=== PATIENT | female | born 1960 | race Caucasian/White ===

== ENCOUNTER 2018-11-30 09:07 | Emergency (ER) | payer OTHER ==
[~2018-11-30] VITALS: Ht 157.5 cm; Wt 67.3 kg
[~2018-11-30 09:07] MED LIST: METFORMIN
[2018-11-30 10:47] LABS: BASOPHILS % 0.5 % (0.0-2.0); EOSINOPHILS % 0.8 % (0.0-5.0); HEMATOCRIT. 43.3 % (36.0-48.0); HEMOGLOBIN. 14.4 g/dL (12.0-16.0); LYMPHOCYTES % 33.4 % (20.0-50.0); MEAN CORPUSCULAR HEMOGLOBIN 28.8 pg (28.0-32.0); MEAN CORPUSCULAR VOLUME 86.4 fL (81.0-99.0); MEAN PLATELET VOLUME 7.7 fl (7.4-10.4); MONOCYTES % 5.9 % (2.0-8.0); NEUTROPHILS % 59.4 % (40.0-76.0); PLATELET 268 x1000/uL (130-400); RED BLOOD CELL COUNT 5.01 mill/uL (4.2-5.4)
[2018-11-30 10:51] LABS: CHLORIDE 104 mEq/L (98-107)
[2018-11-30 10:53] LABS: CLARITY URINE CLOUDY (CLEAR); COLOR URINE YELLOW (YELLOW); KETONES URINE TRACE (NEGATIVE); LEUKOCYTE ESTERASE URINE NEGATIVE (NEGATIVE); NITRITE URINE NEGATIVE (NEGATIVE); OCCULT BLOOD URINE NEGATIVE (NEGATIVE); PROTEIN URINE NEGATIVE (NEGATIVE); SPECIFIC GRAVITY URINE 1.029 (1.005-1.030)
[2018-11-30 10:56] LABS: PARTIAL THROMBOPLASTIN TIME 26.8 sec (23.4-31.0); PROTHROMBIN TIME 9.9 sec (9.6-11.0)
[2018-11-30 13:07] VITALS: BP 136/74
[2018-11-30] MEDS ORDERED: ASPIRIN 325MG EC TABLET PO ONE (13:45)
== END 2018-11-30 13:55 | disposition short-term general hospital (02) ==
LOC: ER 09:07 → CANBEDREQ 16:25
DX: R07.89 Other chest pain (principal); I10 Essential (primary) hypertension; E11.9 Type 2 diabetes mellitus without complications; R42 Dizziness and giddiness; E78.00 Pure hypercholesterolemia, unspecified; N39.0 Urinary tract infection, site not specified; Z90.49 Acquired absence of other specified parts of digestive tract; Z90.710 Acquired absence of both cervix and uterus
CPT/HCPCS: 36415; 71045; 83880; 84484; 93005; 99285

== ENCOUNTER 2019-03-05 09:39 | Emergency (ER) | payer MEDICAID, OTHER ==
[~2019-03-05] VITALS: Ht 152.4 cm; Wt 63.0 kg
[2019-03-05 10:49] LABS: CLARITY URINE CLOUDY (CLEAR); COLOR URINE DARK YELLOW (YELLOW); KETONES URINE TRACE (NEGATIVE); LEUKOCYTE ESTERASE URINE NEGATIVE (NEGATIVE); NITRITE URINE NEGATIVE (NEGATIVE); OCCULT BLOOD URINE NEGATIVE (NEGATIVE); PH URINE 5.5 (4.5-8.0); PROTEIN URINE TRACE (NEGATIVE)
[2019-03-05 10:57] LABS: BASOPHILS % 0.3 % (0.0-2.0); EOSINOPHILS % 1.5 % (0.0-5.0); HEMATOCRIT. 43.1 % (36.0-48.0); HEMOGLOBIN. 14.8 g/dL (12.0-16.0); MEAN CORPUSCULAR HEMOGLOBIN 29.6 pg (28.0-32.0); MEAN CORPUSCULAR VOLUME 86.2 fL (81.0-99.0); MEAN PLATELET VOLUME 8.1 fl (7.4-10.4); MONOCYTES % 6.5 % (2.0-8.0); NEUTROPHILS % 62.7 % (40.0-76.0); PLATELET 253 x1000/uL (130-400); RED CELL DISTRIBUTION WIDTH 13.5 % (11.6-14.6)
[2019-03-05 10:59] LABS: CHLORIDE 101 mEq/L (98-107)
[2019-03-05 12:15] VITALS: BP 106/71
== END 2019-03-05 12:36 | disposition home or self-care (01) ==
LOC: ER 09:39
DX: K57.92 Diverticulitis of intestine, part unspecified, without perforation or abscess without bleeding (principal); I11.9 Hypertensive heart disease without heart failure; I51.9 Heart disease, unspecified; E11.9 Type 2 diabetes mellitus without complications
CPT/HCPCS: 36415; 74176; 80048; 81003; 99284

== ENCOUNTER 2020-09-18 16:05 | Emergency (ER) | payer MEDICAID, OTHER ==
[~2020-09-18] VITALS: Ht 152.4 cm; Wt 69.7 kg
[2020-09-18] MEDS ORDERED: SODIUM CHLORIDE 0.9% 1,000 ML IV ONE (17:15)
[2020-09-18 17:24] LABS: BASOPHILS % 0.4 % (0.0-2.0); HEMATOCRIT. 38.6 % (36.0-48.0); HEMOGLOBIN. 12.9 g/dL (12.0-16.0); LYMPHOCYTES % 39.5 % (20.0-50.0); MEAN CORPUSCULAR HEMOGLOBIN 29.2 pg (28.0-32.0); MEAN CORPUSCULAR VOLUME 87.3 fL (81.0-99.0); MONOCYTES % 4.7 % (2.0-8.0); NEUTROPHILS % 54.4 % (40.0-76.0); PLATELET 233 x1000/uL (130-400); RED BLOOD CELL COUNT 4.43 mill/uL (4.2-5.4); RED CELL DISTRIBUTION WIDTH 13.3 % (11.6-14.6)
[2020-09-18 17:31] LABS: CHLORIDE 105 mEq/L (98-107)
[2020-09-18 17:35] LABS: ETHANOL BLOOD < 10 mg/dL
[2020-09-19 01:04] VITALS: BP 117/74
[2020-09-19] MEDS ORDERED: ACETAMINOPHEN 325MG TABLET PO ONE (01:15)
== END 2020-09-19 01:20 | disposition short-term general hospital (02) ==
LOC: ER 16:05
DX: H53.2 Diplopia (principal); Z86.73 Personal history of transient ischemic attack (TIA), and cerebral infarction without residual deficits; G51.0 Bell's palsy; E11.9 Type 2 diabetes mellitus without complications; I10 Essential (primary) hypertension; E78.00 Pure hypercholesterolemia, unspecified
CPT/HCPCS: 36415; 70450; 71045; 80053; 80320; 82962; 84484; 85025; 93005; 99285; J7030; Z7610; G0480

== ENCOUNTER 2020-10-04 08:58 | Emergency (ER) | payer OTHER ==
[~2020-10-04] VITALS: Ht 152.4 cm; Wt 70.0 kg
[2020-10-04] MEDS ORDERED: ACETAMINOPHEN 325MG TABLET PO STA (09:11)
[2020-10-04] MEDS ORDERED: SODIUM CHLORIDE 0.9% 1,000 ML IV ONE (09:15)
[2020-10-04 09:57] LABS: BASOPHILS % 0.4 % (0.0-2.0); EOSINOPHILS % 0.7 % (0.0-5.0); HEMATOCRIT. 41.1 % (36.0-48.0); HEMOGLOBIN. 13.6 g/dL (12.0-16.0); LYMPHOCYTES % 27.7 % (20.0-50.0); MEAN CORPUSCULAR HEMOGLOBIN 28.9 pg (28.0-32.0); MEAN CORPUSCULAR VOLUME 87.3 fL (81.0-99.0); MONOCYTES % 4.7 % (2.0-8.0); NEUTROPHILS % 66.5 % (40.0-76.0); RED BLOOD CELL COUNT 4.72 mill/uL (4.2-5.4)
[2020-10-04 09:58] LABS: CHLORIDE 104 mEq/L (98-107)
[2020-10-04] MEDS ORDERED: IBUP-2029 MT (11:27)
[2020-10-04] MEDS ORDERED: KETOROLAC 15MG/ML VIAL IV ONE (11:30)
[2020-10-04 11:42] LABS: PLATELET 235 x1000/uL (130-400)
[2020-10-04 11:52] VITALS: BP 116/77
== END 2020-10-04 12:06 | disposition home or self-care (01) ==
LOC: ER 08:58
DX: B34.9 Viral infection, unspecified (principal); E78.00 Pure hypercholesterolemia, unspecified; E11.9 Type 2 diabetes mellitus without complications; I11.9 Hypertensive heart disease without heart failure; Z86.73 Personal history of transient ischemic attack (TIA), and cerebral infarction without residual deficits; Z90.49 Acquired absence of other specified parts of digestive tract; Z90.710 Acquired absence of both cervix and uterus; Z79.84 Long term (current) use of oral hypoglycemic drugs
CPT/HCPCS: 36415; 70450; 71045; 80053; 85025; 87040; 93005; 96361; 96374; 99285; J1885; J7030

== ENCOUNTER 2021-02-06 11:24 | Inpatient (IN) | payer OTHER ==
[~2021-02-06] VITALS: Ht 154.9 cm; Wt 66.7 kg
[~2021-02-06 11:24] MED LIST changes: +IBUP-2029 MT
[2021-02-06] MEDS ORDERED: MORPHINE SULFATE 4 MG/ML CPJ (NOT FOR IM USE) IV STA (12:06)
[2021-02-06 12:28] LABS: BASOPHILS % 0.3 % (0.0-2.0); EOSINOPHILS % 0.7 % (0.0-5.0); HEMATOCRIT. 40.7 % (36.0-48.0); HEMOGLOBIN. 13.7 g/dL (12.0-16.0); LYMPHOCYTES % 19.4 % (20.0-50.0); MEAN CORPUSCULAR HEMOGLOBIN 28.8 pg (28.0-32.0); MEAN CORPUSCULAR VOLUME 85.5 fL (81.0-99.0); MEAN PLATELET VOLUME 7.7 fl (7.4-10.4); MONOCYTES % 4.9 % (2.0-8.0); NEUTROPHILS % 74.7 % (40.0-76.0); PLATELET 239 x1000/uL (130-400); RED BLOOD CELL COUNT 4.76 mill/uL (4.2-5.4); RED CELL DISTRIBUTION WIDTH 12.8 % (11.6-14.6)
[2021-02-06 12:36] LABS: CHLORIDE 104 mEq/L (98-107)
[2021-02-06] MEDS ORDERED: MORPHINE SULFATE 4 MG/ML CPJ (NOT FOR IM USE) IV ONE (14:15)
[2021-02-06 21:00] VITALS: BP 110/78
[2021-02-06 21:24] VITALS: BP 110/78
[2021-02-06] MEDS ORDERED: GLIP10TA10 PO (21:48)
[2021-02-06] MEDS ORDERED: VALS40TA11 MT (21:51)
[2021-02-06] MEDS ORDERED: INSU100I28 SQ (21:52)
[2021-02-06] MEDS ORDERED: ASPI-986 MT (21:52)
[2021-02-07] VITALS: BP 117/71
[2021-02-07 04:00] VITALS: BP 102/66
[2021-02-07] MEDS ORDERED: CLONIDINE 0.1MG TABLET PO PRN (05:15)
[2021-02-07] MEDS ORDERED: ACETAMINOPHEN 325MG TABLET PO PRN (05:15)
[2021-02-07] MEDS ORDERED: ONDANSETRON HCL 4MG/2ML INJ IV PRN (05:15)
[2021-02-07] MEDS ORDERED: DEXTROSE 50% WATER 50ML SYRINGE IV PRN (05:15)
[2021-02-07] MEDS: BLOOD SUGAR DIAGNOSTIC STRIP TEST SCH ×4 (05:46→21:56)
[2021-02-07] MEDS: INSULIN LISPRO 100 UNITS/ML SUBCUT SCH ×4 (05:48→21:56)
[2021-02-07 08:00] VITALS: BP 106/66
[2021-02-07 08:26] LABS: CHLORIDE 105 mEq/L (98-107)
[2021-02-07 08:36] LABS: LDL CHOLESTEROL 106 mg/dL (5-100)
[2021-02-07 08:37] LABS: HDL CHOLESTEROL 52 mg/dL (40-59)
[2021-02-07 08:40] LABS: BASOPHILS % 0.3 % (0.0-2.0); EOSINOPHILS % 0.5 % (0.0-5.0); HEMATOCRIT. 38.6 % (36.0-48.0); HEMOGLOBIN. 12.9 g/dL (12.0-16.0); LYMPHOCYTES % 29.1 % (20.0-50.0); MEAN CORPUSCULAR HEMOGLOBIN 28.7 pg (28.0-32.0); MEAN CORPUSCULAR VOLUME 85.6 fL (81.0-99.0); MEAN PLATELET VOLUME 8.2 fl (7.4-10.4); MONOCYTES % 6.2 % (2.0-8.0); NEUTROPHILS % 63.9 % (40.0-76.0); PLATELET 236 x1000/uL (130-400); RED BLOOD CELL COUNT 4.51 mill/uL (4.2-5.4); RED CELL DISTRIBUTION WIDTH 13.1 % (11.6-14.6)
[2021-02-07] MEDS: ASPIRIN 81MG TABLET PO SCH (09:33)
[2021-02-07 12:00] VITALS: BP 93/53
[2021-02-07 12:24] LABS: *AMPHETAMINES SCREEN URINE NEGATIVE (NEGATIVE); *BARBITURATES SCREEN URINE NEGATIVE (NEGATIVE); *BENZODIAZEPINES SCREEN URINE NEGATIVE (NEGATIVE); *COCAINE SCREEN URINE NEGATIVE (NEGATIVE); METHADONE URINE SCREEN NEGATIVE (NEGATIVE); OPIATES URINE SCREEN PRESUMTIVE POSITIVE (NEGATIVE)
[2021-02-07 12:25] LABS: CANNABINOID URINE SCREEN NEGATIVE (NEGATIVE); PHENCYCLIDINE URINE SCREEN NEGATIVE (NEGATIVE)
[2021-02-07 16:00] VITALS: BP 101/68
[2021-02-07 18:16] LABS: HDL CHOLESTEROL 47 mg/dL (40-59); LDL CHOLESTEROL 96 mg/dL (5-100)
[2021-02-07 20:00] VITALS: BP 98/55
[2021-02-08] VITALS: BP 97/54
[2021-02-08 04:00] VITALS: BP 92/55
[2021-02-08] MEDS: BLOOD SUGAR DIAGNOSTIC STRIP TEST SCH ×2 (06:12→12:08)
[2021-02-08] MEDS: INSULIN LISPRO 100 UNITS/ML SUBCUT SCH ×2 (06:13→13:07)
[2021-02-08 08:00] VITALS: BP 108/49
[2021-02-08 08:04] LABS: BASOPHILS % 0.4 % (0.0-2.0); HEMATOCRIT. 39.1 % (36.0-48.0); HEMOGLOBIN. 13.1 g/dL (12.0-16.0); LYMPHOCYTES % 37.1 % (20.0-50.0); MEAN CORPUSCULAR HEMOGLOBIN 29.1 pg (28.0-32.0); MEAN CORPUSCULAR VOLUME 86.7 fL (81.0-99.0); MEAN PLATELET VOLUME 8.6 fl (7.4-10.4); MONOCYTES % 7.8 % (2.0-8.0); NEUTROPHILS % 53.7 % (40.0-76.0); PLATELET 242 x1000/uL (130-400); RED BLOOD CELL COUNT 4.51 mill/uL (4.2-5.4); RED CELL DISTRIBUTION WIDTH 13.2 % (11.6-14.6)
[2021-02-08] MEDS: ASPIRIN 81MG TABLET PO SCH (08:40)
[2021-02-08 08:56] LABS: CHLORIDE 105 mEq/L (98-107)
[2021-02-08 12:00] VITALS: BP 118/72
[2021-02-08 13:46] VITALS: BP 118/72
== END 2021-02-08 15:04 | disposition home or self-care (01) | DRG 203 ==
LOC: ER 11:24 → ENRESERV 20:12 → 7EST 21:10
PROVIDERS: ADMIT Internal Medicine; ATTEND Internal Medicine
DX: M94.0 Chondrocostal junction syndrome [Tietze] (principal); E11.9 Type 2 diabetes mellitus without complications; E78.00 Pure hypercholesterolemia, unspecified; E78.5 Hyperlipidemia, unspecified; I10 Essential (primary) hypertension; Z20.822 Contact with and (suspected) exposure to COVID-19; Z86.73 Personal history of transient ischemic attack (TIA), and cerebral infarction without residual deficits; Z87.891 Personal history of nicotine dependence; Z90.710 Acquired absence of both cervix and uterus; Z79.899 Other long term (current) drug therapy; Z90.49 Acquired absence of other specified parts of digestive tract; Z79.82 Long term (current) use of aspirin
CPT/HCPCS: 36415; 71045; 80048; 80053; 80061; 80305; 82962; 83735; 83880; 84443; 84484; 85025; 87426; 93005; 93306; 99285; J1815; J2270

== ENCOUNTER 2022-05-31 10:06 | Emergency (ER) | payer MEDICAID, OTHER ==
[~2022-05-31] VITALS: Ht 162.6 cm; Wt 82.0 kg
[~2022-05-31 10:06] MED LIST changes: +ASPI-986 MT; +GLIP10TA10 PO; +INSU100I28 SQ; +VALS40TA11 MT
[2022-05-31] MEDS ORDERED: KETOROLAC 30MG/ML VIAL IM STA (12:15)
[2022-05-31] MEDS ORDERED: DEXAMETHASONE 10 MG/ML VIAL IM ONE (12:15)
[2022-05-31] MEDS ORDERED: PENICILLIN G BENZATHINE 1,200,000 UNITS/2ML SYR IM ONE (12:15)
[2022-05-31] MEDS ORDERED: PENICILLIN G BENZATHINE 1,200,000 UNITS/2ML SYR IM NR (13:59)
[2022-05-31 14:10] LABS: CLARITY URINE CLOUDY (CLEAR); COLOR URINE YELLOW (YELLOW); KETONES URINE NEGATIVE (NEGATIVE); LEUKOCYTE ESTERASE URINE NEGATIVE (NEGATIVE); NITRITE URINE NEGATIVE (NEGATIVE); OCCULT BLOOD URINE NEGATIVE (NEGATIVE); PH URINE 5.5 (4.5-8.0); PROTEIN URINE NEGATIVE (NEGATIVE); SPECIFIC GRAVITY URINE 1.021 (1.005-1.030); UROBILINOGEN URINE 0.2 E.U./dL (0.2-1.0)
[2022-05-31] MEDS ORDERED: NAPR-681 PO (15:57)
[2022-05-31 16:34] VITALS: BP 145/65
== END 2022-05-31 16:36 | disposition home or self-care (01) ==
LOC: ER 10:06
DX: J02.9 Acute pharyngitis, unspecified (principal); M54.9 Dorsalgia, unspecified; Z20.822 Contact with and (suspected) exposure to COVID-19; I11.9 Hypertensive heart disease without heart failure; E11.9 Type 2 diabetes mellitus without complications
CPT/HCPCS: 81003; 82962; 87070; 87426; 87430; 93005; 96372; 99284; C9803; J0561; J1100; J1885

== ENCOUNTER 2022-06-13 07:53 | Inpatient (IN) | payer MEDICAID, OTHER ==
[~2022-06-13] VITALS: Ht 152.4 cm; Wt 72.8 kg
[~2022-06-13 07:53] MED LIST changes: +NAPR-681 PO
[2022-06-13] MEDS ORDERED: ASPIRIN 81MG TABLET PO ONE (09:00)
[2022-06-13] MEDS ORDERED: NITROGLYCERIN 0.4MG TABLET SL SL PRN (09:00)
[2022-06-13 09:52] LABS: BASOPHILS % 0.6 % (0.0-2.0); EOSINOPHILS % 0.5 % (0.0-5.0); HEMOGLOBIN. 13.6 g/dL (12.0-16.0); LYMPHOCYTES % 23.9 % (20.0-50.0); MEAN CORPUSCULAR VOLUME 86.2 fL (81.0-99.0); MEAN PLATELET VOLUME 7.6 fl (7.4-10.4); MONOCYTES % 7.3 % (2.0-8.0); NEUTROPHILS % 67.7 % (40.0-76.0); PLATELET 193 x1000/uL (130-400); RED BLOOD CELL COUNT 4.52 mill/uL (4.2-5.4); RED CELL DISTRIBUTION WIDTH 13.5 % (11.6-14.6)
[2022-06-13 10:03] LABS: D-DIMER 0.34 mg/L FEU (<0.50); PARTIAL THROMBOPLASTIN TIME 28.2 sec (23.4-31.0); PROTHROMBIN TIME 10.8 sec (9.6-11.0)
[2022-06-13 10:10] LABS: CHLORIDE 104 mEq/L (98-107)
[2022-06-13] MEDS ORDERED: ASPIRIN 81MG TABLET PO NR (11:15)
[2022-06-13] MEDS ORDERED: CLONIDINE 0.1MG TABLET PO PRN (13:30)
[2022-06-13] MEDS ORDERED: MORPHINE SULFATE 2 MG/ML CPJ (NOT FOR IM USE) IV PRN (13:30)
[2022-06-13] MEDS ORDERED: IPRATROPIUM/ALBUTEROL 0.5-3(2.5)MG/3ML NEB HHN PRN (13:30)
[2022-06-13] MEDS ORDERED: ONDANSETRON HCL 4MG/2ML INJ IV PRN (13:30)
[2022-06-13] MEDS ORDERED: NALOXONE HCL 0.4MG/ML VIAL IV PRN (13:45)
[2022-06-13 17:18] VITALS: BP 106/64
[2022-06-13 17:33] VITALS: BP 106/64
[2022-06-13] MEDS ORDERED: METF-873 PO (17:52)
[2022-06-13] MEDS ORDERED: INSU100I28 SQ (17:52)
[2022-06-13 20:00] VITALS: BP 117/73
[2022-06-13] MEDS: ACETAMINOPHEN 325MG TABLET PO PRN (22:23)
[2022-06-13] MEDS: DIPHENHYDRAMINE 50MG/ML VIAL IV PRN (22:24)
[2022-06-14] VITALS: BP 110/70
[2022-06-14 04:00] VITALS: BP 98/52
[2022-06-14] MEDS ORDERED: DEXTROSE 50% WATER 50ML SYRINGE IV PRN (07:00)
[2022-06-14] MEDS ORDERED: INSULIN LISPRO 100 UNITS/ML SUBCUT SCH (07:10)
[2022-06-14] MEDS: BLOOD SUGAR DIAGNOSTIC STRIP TEST SCH ×4 (07:49→20:39)
[2022-06-14 08:00] VITALS: BP 127/75
[2022-06-14 08:13] LABS: BASOPHILS % 0.4 % (0.0-2.0); EOSINOPHILS % 2.2 % (0.0-5.0); HEMATOCRIT. 37.8 % (36.0-48.0); HEMOGLOBIN. 12.9 g/dL (12.0-16.0); MEAN CORPUSCULAR HEMOGLOBIN 29.3 pg (28.0-32.0); MEAN CORPUSCULAR VOLUME 85.9 fL (81.0-99.0); MONOCYTES % 9.5 % (2.0-8.0); NEUTROPHILS % 46.9 % (40.0-76.0); PLATELET 187 x1000/uL (130-400); RED CELL DISTRIBUTION WIDTH 13.4 % (11.6-14.6)
[2022-06-14 08:37] LABS: CHLORIDE 105 mEq/L (98-107)
[2022-06-14] MEDS: INSULIN LISPRO 100 UNITS/ML SUBCUT SCH ×4 (08:55→20:39)
[2022-06-14 12:00] VITALS: BP 123/64
[2022-06-14] MEDS: GUAIFENESIN 200MG/10ML SUGAR FREE UDC PO PRN ×2 (12:31→22:19)
[2022-06-14 16:00] VITALS: BP 93/59
[2022-06-14 20:00] VITALS: BP 119/62
[2022-06-14] MEDS: ACETAMINOPHEN 325MG TABLET PO PRN (22:19)
[2022-06-14] MEDS: DIPHENHYDRAMINE 50MG/ML VIAL IV PRN (22:20)
[2022-06-15] VITALS: BP 108/62
[2022-06-15 04:00] VITALS: BP 106/64
[2022-06-15] MEDS: BLOOD SUGAR DIAGNOSTIC STRIP TEST SCH ×4 (06:40→21:48)
[2022-06-15] MEDS: INSULIN LISPRO 100 UNITS/ML SUBCUT SCH ×4 (07:43→21:00)
[2022-06-15 08:00] VITALS: BP 100/56
[2022-06-15 12:00] VITALS: BP 104/60
[2022-06-15] MEDS: GLIPIZIDE 10MG TABLET PO SCH (13:11)
[2022-06-15] MEDS: MUPIROCIN 2% OINT 22GM TOP SCH (14:41)
[2022-06-15 16:00] VITALS: BP 102/54
[2022-06-15] MEDS: METFORMIN HCL 850MG TABLET PO SCH (18:12)
[2022-06-15 20:00] VITALS: BP 111/60
[2022-06-15] MEDS: ACETAMINOPHEN 325MG TABLET PO PRN (21:51)
[2022-06-16] VITALS: BP 106/62
[2022-06-16 04:00] VITALS: BP 109/69
[2022-06-16] MEDS: METFORMIN HCL 850MG TABLET PO SCH (06:49)
[2022-06-16] MEDS: BLOOD SUGAR DIAGNOSTIC STRIP TEST SCH ×2 (06:49→11:42)
[2022-06-16] MEDS: GLIPIZIDE 10MG TABLET PO SCH (06:49)
[2022-06-16] MEDS: INSULIN LISPRO 100 UNITS/ML SUBCUT SCH ×2 (06:50→12:43)
[2022-06-16 08:00] VITALS: BP 111/69
[2022-06-16] MEDS ORDERED: MEDICATION NOT ON FORMULARY EA (Valsartan 1 TAB) MT SCH (09:00)
[2022-06-16] MEDS ORDERED: LOSARTAN POTASSIUM 25 MG TABLET PO SCH (09:00)
[2022-06-16] MEDS: MUPIROCIN 2% OINT 22GM TOP SCH (09:02)
[2022-06-16 12:00] VITALS: BP 108/69
[2022-06-16] MEDS ORDERED: BENZ100C86 MT (12:33)
[2022-06-16 12:54] VITALS: BP 108/69
== END 2022-06-16 14:25 | disposition home or self-care (01) | DRG 137 ==
LOC: ER 07:53 → 7EST 12:47 → EDBEDREQ 12:51 → EDBEDREQTM 12:51 → ENRESERV 13:41
PROVIDERS: ADMIT Internal Medicine; ATTEND Internal Medicine
DX: U07.1 COVID-19 (principal); E11.9 Type 2 diabetes mellitus without complications; E78.5 Hyperlipidemia, unspecified; E78.00 Pure hypercholesterolemia, unspecified; I10 Essential (primary) hypertension; I25.10 Atherosclerotic heart disease of native coronary artery without angina pectoris; Z79.4 Long term (current) use of insulin; Z86.73 Personal history of transient ischemic attack (TIA), and cerebral infarction without residual deficits; Z90.710 Acquired absence of both cervix and uterus
CPT/HCPCS: 36415; 71045; 80053; 82962; 83036; 83880; 84145; 84484; 85025; 85379; 87426; 93005; 93970; 99285; C9803; J1200; J1815

== ENCOUNTER 2022-11-05 15:22 | Emergency (ER) | payer OTHER ==
[~2022-11-05] VITALS: Ht 157.5 cm; Wt 68.0 kg
[~2022-11-05 15:22] MED LIST changes: -ASPI-986 MT; +BENZ100C86 MT; +METF-873 PO
[2022-11-05] MEDS ORDERED: SODIUM CHLORIDE 0.9% 1,000 ML IV ONE (15:30)
[2022-11-05 15:53] LABS: BASOPHILS % 0.3 % (0.0-2.0); EOSINOPHILS % 0.9 % (0.0-5.0); HEMATOCRIT. 40.1 % (36.0-48.0); HEMOGLOBIN. 13.6 g/dL (12.0-16.0); LYMPHOCYTES % 37.4 % (20.0-50.0); MEAN CORPUSCULAR HEMOGLOBIN 29.6 pg (28.0-32.0); MEAN CORPUSCULAR VOLUME 86.9 fL (81.0-99.0); MEAN PLATELET VOLUME 7.8 fl (7.4-10.4); MONOCYTES % 4.5 % (2.0-8.0); NEUTROPHILS % 56.9 % (40.0-76.0); PLATELET 244 x1000/uL (130-400); RED BLOOD CELL COUNT 4.61 mill/uL (4.2-5.4); RED CELL DISTRIBUTION WIDTH 13.2 % (11.6-14.6)
[2022-11-05 16:00] LABS: CHLORIDE 106 mEq/L (98-107)
[2022-11-05 17:26] LABS: CLARITY URINE CLEAR (CLEAR); COLOR URINE YELLOW (YELLOW); KETONES URINE TRACE (NEGATIVE); LEUKOCYTE ESTERASE URINE NEGATIVE (NEGATIVE); NITRITE URINE NEGATIVE (NEGATIVE); OCCULT BLOOD URINE NEGATIVE (NEGATIVE); PH URINE 5.5 (4.5-8.0); PROTEIN URINE 1+ (NEGATIVE)
[2022-11-05] MEDS ORDERED: ACETAMINOPHEN 325MG TABLET PO ONE (17:30)
[2022-11-05] MEDS ORDERED: AMOX1TAB16 MT (19:11)
[2022-11-05] MEDS ORDERED: METR-167 MT (19:11)
[2022-11-05 19:40] VITALS: BP 138/72
== END 2022-11-05 19:50 | disposition home or self-care (01) ==
LOC: ER 15:22
DX: R55 Syncope and collapse (principal); K57.90 Diverticulosis of intestine, part unspecified, without perforation or abscess without bleeding; I10 Essential (primary) hypertension; E11.9 Type 2 diabetes mellitus without complications; Z90.49 Acquired absence of other specified parts of digestive tract
CPT/HCPCS: 36415; 70450; 71045; 74176; 80053; 81003; 84484; 85025; 93005; 96360; 96361; 99285; J7030; Z7610

== ENCOUNTER 2022-11-15 10:41 | Emergency (ER) | payer OTHER ==
[~2022-11-15] VITALS: Ht 152.4 cm; Wt 70.0 kg
[~2022-11-15 10:41] MED LIST changes: +AMOX1TAB16 MT; +METR-167 MT
[2022-11-15] MEDS ORDERED: KETOROLAC 15MG/ML VIAL IV ONE (11:45)
[2022-11-15 12:22] LABS: BASOPHILS % 0.3 % (0.0-2.0); EOSINOPHILS % 0.7 % (0.0-5.0); HEMATOCRIT. 39.8 % (36.0-48.0); HEMOGLOBIN. 13.5 g/dL (12.0-16.0); LYMPHOCYTES % 27.7 % (20.0-50.0); MEAN CORPUSCULAR HEMOGLOBIN 29.4 pg (28.0-32.0); MEAN CORPUSCULAR VOLUME 86.8 fL (81.0-99.0); MONOCYTES % 7.6 % (2.0-8.0); NEUTROPHILS % 63.7 % (40.0-76.0); PLATELET 231 x1000/uL (130-400); RED BLOOD CELL COUNT 4.59 mill/uL (4.2-5.4); RED CELL DISTRIBUTION WIDTH 13.1 % (11.6-14.6)
[2022-11-15 12:27] LABS: CHLORIDE 105 mEq/L (98-107)
[2022-11-15 12:28] LABS: PROTHROMBIN TIME 10.9 sec (9.6-11.0)
[2022-11-15 12:40] LABS: BETA HYDROXYBUTYRATE 0.5 mMol/L (0.0-0.3)
[2022-11-15 15:32] LABS: CLARITY URINE CLOUDY (CLEAR); COLOR URINE YELLOW (YELLOW); KETONES URINE 2+ (NEGATIVE); LEUKOCYTE ESTERASE URINE NEGATIVE (NEGATIVE); NITRITE URINE NEGATIVE (NEGATIVE); OCCULT BLOOD URINE NEGATIVE (NEGATIVE); PH URINE 5.5 (4.5-8.0); PROTEIN URINE TRACE (NEGATIVE); SPECIFIC GRAVITY URINE 1.043 (1.005-1.030)
[2022-11-15 16:22] VITALS: BP 132/76
== END 2022-11-15 16:40 | disposition home or self-care (01) ==
LOC: ER 11:31
DX: J06.9 Acute upper respiratory infection, unspecified (principal); E11.65 Type 2 diabetes mellitus with hyperglycemia; I10 Essential (primary) hypertension; Z79.899 Other long term (current) drug therapy; Z90.49 Acquired absence of other specified parts of digestive tract
CPT/HCPCS: 36415; 71045; 72100; 80053; 81003; 82010; 83605; 83880; 84145; 84484; 85025; 85610; 87040; 93005; 96374; 99285; J1885; Z7610

== ENCOUNTER 2023-03-19 09:46 | Emergency (ER) | payer OTHER ==
[~2023-03-19] VITALS: Ht 152.4 cm; Wt 73.0 kg
[2023-03-19 09:57] VITALS: RESP 18; O2SAT 96
[2023-03-19] MEDS ORDERED: ONDANSETRON HCL 4MG/2ML INJ IV ONE (10:00)
[2023-03-19] MEDS ORDERED: MORPHINE SULFATE 4 MG/ML CPJ (NOT FOR IM USE) IV ONE (10:00)
[2023-03-19 10:52] LABS: BASOPHILS % 0.3 % (0.0-2.0); EOSINOPHILS % 0.7 % (0.0-5.0); HEMATOCRIT. 40.2 % (36.0-48.0); HEMOGLOBIN. 13.5 g/dL (12.0-16.0); LYMPHOCYTES % 31.4 % (20.0-50.0); MEAN CORPUSCULAR HEMOGLOBIN 28.9 pg (28.0-32.0); MEAN CORPUSCULAR HGB CONC 33.6 g/dL (31.0-37.0); MEAN CORPUSCULAR VOLUME 85.9 fL (81.0-99.0); MEAN PLATELET VOLUME 7.7 fl (7.4-10.4); MONOCYTES % 5.2 % (2.0-8.0); NEUTROPHILS % 62.4 % (40.0-76.0); PLATELET 246 x1000/uL (130-400); RED BLOOD CELL COUNT 4.68 mill/uL (4.2-5.4); RED CELL DISTRIBUTION WIDTH 13.1 % (11.6-14.6); WHITE BLOOD COUNT 6.7 x1000/uL (4.5-11.0)
[2023-03-19 11:03] LABS: CHLORIDE 106 mEq/L (98-107); INDEX HEMOLYSI 1 (1-3); INDEX ICTERIC 1 (1-4); INDEX LIPEMIC 1 (1-3); POTASSIUM 4.1 mEq/L (3.5-5.1); SODIUM 135 mEq/L (136-145)
[2023-03-19 11:05] LABS: INR 0.9; PROTHROMBIN TIME 10.2 sec (9.6-11.0)
[2023-03-19 11:10] LABS: ALANINE AMINOTRANSFERASE 30 IU/L (13-61); ALBUMIN 3.6 g/dL (3.4-5.0); ASPARTATE AMINOTRANSFERASE 15 IU/L (15-37); BILIRUBIN TOTAL 0.7 mg/dL (0.1-1.0); CARBON DIOXIDE 25 mEq/L (21-32); CREATININE 0.5 mg/dL (0.6-1.3); GLUCOSE 353 mg/dL (70-105); PROTEIN TOTAL 7.8 g/dL (6.0-8.3); UREA NITROGEN BLOOD 6 mg/dL (7-21)
[2023-03-19] MEDS ORDERED: TOPUD PO (12:55)
[2023-03-19 13:22] VITALS: BP 133/61; PULSE 72; TEMP 97.6
== END 2023-03-19 14:14 | disposition home or self-care (01) ==
LOC: ER 09:46
DX: R10.9 Unspecified abdominal pain (principal); E11.9 Type 2 diabetes mellitus without complications; I10 Essential (primary) hypertension; Z90.49 Acquired absence of other specified parts of digestive tract; Z90.710 Acquired absence of both cervix and uterus; Z79.899 Other long term (current) drug therapy
CPT/HCPCS: 36415; 74176; 80053; 85025; 99284

== ENCOUNTER 2023-06-14 09:59 | Emergency (ER) | payer OTHER ==
[~2023-06-14] VITALS: Ht 152.4 cm; Wt 58.0 kg
[~2023-06-14 09:59] MED LIST changes: +TOPUD PO
[2023-06-14 10:02] VITALS: BP 141/53; PULSE 83; RESP 20; TEMP 97.8; O2SAT 100
[2023-06-14] MEDS ORDERED: BACITRACIN ZINC OINT UDPKT TOP ONE (12:00)
== END 2023-06-14 12:07 | disposition home or self-care (01) ==
LOC: ER 09:59
DX: S61.210A Laceration without foreign body of right index finger without damage to nail, initial encounter (principal); E11.9 Type 2 diabetes mellitus without complications; I11.0 Hypertensive heart disease with heart failure; I50.9 Heart failure, unspecified; Z90.49 Acquired absence of other specified parts of digestive tract; Z90.710 Acquired absence of both cervix and uterus; W25.XXXA Contact with sharp glass, initial encounter; Y93.89 Activity, other specified; Y92.89 Other specified places as the place of occurrence of the external cause; Y99.8 Other external cause status
CPT/HCPCS: 99282

== ENCOUNTER 2023-10-22 08:25 | Inpatient (IN) | payer MEDICAID, OTHER ==
[~2023-10-22] VITALS: Ht 157.5 cm; Wt 68.5 kg
[2023-10-22 08:48] LABS: BASOPHILS % 0.6 % (0.0-2.0); EOSINOPHILS % 0.9 % (0.0-5.0); HEMATOCRIT. 40.4 % (36.0-48.0); HEMOGLOBIN. 13.3 g/dL (12.0-16.0); LYMPHOCYTES % 39.4 % (20.0-50.0); MEAN CORPUSCULAR HEMOGLOBIN 28.7 pg (28.0-32.0); MEAN CORPUSCULAR HGB CONC 32.9 g/dL (31.0-37.0); MEAN CORPUSCULAR VOLUME 87.1 fL (81.0-99.0); MEAN PLATELET VOLUME 7.9 fl (7.4-10.4); MONOCYTES % 5.4 % (2.0-8.0); NEUTROPHILS % 53.7 % (40.0-76.0); PLATELET 220 x1000/uL (130-400); RED BLOOD CELL COUNT 4.63 mill/uL (4.2-5.4); RED CELL DISTRIBUTION WIDTH 12.7 % (11.6-14.6)
[2023-10-22] MEDS: IOHEXOL-350 100 ML BOTTLE ONE (08:59)
[2023-10-22 09:03] LABS: INR 0.9; PROTHROMBIN TIME 10.1 sec (9.6-11.0)
[2023-10-22 09:15] LABS: ALANINE AMINOTRANSFERASE 20 IU/L (10-49); ALBUMIN 4.3 g/dL (3.2-4.8); ASPARTATE AMINOTRANSFERASE 19 IU/L (<34); BILIRUBIN TOTAL 0.4 mg/dL (0.1-1.0); CARBON DIOXIDE 24 mEq/L (21-32); CHLORIDE 107 mEq/L (98-107); CREATININE 0.7 mg/dL (0.6-1.0); GLUCOSE 307 mg/dL (70-105); PROTEIN TOTAL 7.7 g/dL (6.0-8.3); SODIUM 136 mEq/L (136-145); UREA NITROGEN BLOOD 12 mg/dL (9-23)
[2023-10-22 09:17] LABS: ETHANOL BLOOD < 10 mg/dL (<10); TROPONIN I HIGH SENSITIVITY < 4 ng/L (3.0-34)
[2023-10-22] MEDS: SODIUM CHLORIDE 0.9% 1,000 ML IV ONE (10:00)
[2023-10-22] MEDS: ONDANSETRON HCL 4MG/2ML INJ IV ONE (10:00)
[2023-10-22 12:29] LABS: TROPONIN I HIGH SENSITIVITY < 4 ng/L (3.0-34)
[2023-10-22 13:09] LABS: CLARITY URINE CLEAR (CLEAR); COLOR URINE YELLOW (YELLOW); GLUCOSE URINE 3+ (NEGATIVE); KETONES URINE NEGATIVE (NEGATIVE); LEUKOCYTE ESTERASE URINE NEGATIVE (NEGATIVE); NITRITE URINE NEGATIVE (NEGATIVE); OCCULT BLOOD URINE NEGATIVE (NEGATIVE); PROTEIN URINE NEGATIVE (NEGATIVE); SPECIFIC GRAVITY URINE 1.042 (1.005-1.030)
[2023-10-22 13:19] LABS: BACTERIA URINE 1+; RBC URINE NONE SEEN /hpf (0-2); SQUAMOUS EPITHELIAL CELL URINE 2+ /lpf (RARE/1+); WBC URINE NONE SEEN /hpf (0-2)
[2023-10-22 13:30] LABS: *AMPHETAMINES SCREEN URINE NEGATIVE (NEGATIVE); *BARBITURATES SCREEN URINE NEGATIVE (NEGATIVE); *BENZODIAZEPINES SCREEN URINE NEGATIVE (NEGATIVE); *COCAINE SCREEN URINE NEGATIVE (NEGATIVE); CANNABINOID URINE SCREEN NEGATIVE (NEGATIVE); ECSTASY MDMA SCREEN URINE NEGATIVE (NEGATIVE); METHADONE URINE SCREEN Neg (NEGATIVE); OPIATES URINE SCREEN NEGATIVE (NEGATIVE); PHENCYCLIDINE URINE SCREEN NEGATIVE (NEGATIVE)
[2023-10-22] MEDS: ONDANSETRON HCL 4MG/2ML INJ IV NR (14:15)
[2023-10-22] MEDS ORDERED: CLONIDINE 0.1MG TABLET PO PRN (14:30)
[2023-10-22] MEDS ORDERED: DIPHENHYDRAMINE 50MG/ML VIAL IV PRN (14:30)
[2023-10-22] MEDS ORDERED: IPRATROPIUM/ALBUTEROL 0.5-3(2.5)MG/3ML NEB HHN PRN (14:30)
[2023-10-22] MEDS ORDERED: ONDANSETRON HCL 4MG/2ML INJ IV PRN (14:30)
[2023-10-22 20:22] VITALS: BP 114/56; PULSE 63; RESP 18; TEMP 97.5
[2023-10-22] MEDS: ACETAMINOPHEN 325MG TABLET PO PRN (20:49)
[2023-10-22 20:51] VITALS: BP 114/56; PULSE 63; RESP 18; TEMP 97.5
[2023-10-22] MEDS ORDERED: INSULIN LISPRO 100 UNITS/ML SUBCUT NR (22:30)
[2023-10-22] MEDS ORDERED: DEXTROSE 50% WATER 50ML SYRINGE IV PRN (22:30)
[2023-10-22] MEDS: INSULIN LISPRO 100 UNITS/ML SUBCUT NR (22:51)
[2023-10-23 00:45] VITALS: BP 113/64; PULSE 67; RESP 19; TEMP 97.1
[2023-10-23 04:00] VITALS: BP 119/64; PULSE 67; RESP 20; TEMP 97.1
[2023-10-23 07:28] LABS: BASOPHILS % 0.3 % (0.0-2.0); EOSINOPHILS % 0.5 % (0.0-5.0); HEMATOCRIT. 39.5 % (36.0-48.0); HEMOGLOBIN. 13.3 g/dL (12.0-16.0); LYMPHOCYTES % 24.2 % (20.0-50.0); MEAN CORPUSCULAR HEMOGLOBIN 29.3 pg (28.0-32.0); MEAN CORPUSCULAR HGB CONC 33.8 g/dL (31.0-37.0); MEAN CORPUSCULAR VOLUME 86.6 fL (81.0-99.0); MEAN PLATELET VOLUME 8.2 fl (7.4-10.4); MONOCYTES % 4.4 % (2.0-8.0); NEUTROPHILS % 70.6 % (40.0-76.0); PLATELET 218 x1000/uL (130-400); RED BLOOD CELL COUNT 4.56 mill/uL (4.2-5.4); RED CELL DISTRIBUTION WIDTH 13.1 % (11.6-14.6); WHITE BLOOD COUNT 8.2 x1000/uL (4.5-11.0)
[2023-10-23] MEDS: BLOOD SUGAR DIAGNOSTIC STRIP TEST SCH (07:40)
[2023-10-23 07:41] LABS: ALANINE AMINOTRANSFERASE 20 IU/L (10-49); ALBUMIN 4.2 g/dL (3.2-4.8); ASPARTATE AMINOTRANSFERASE 18 IU/L (<34); BILIRUBIN TOTAL 0.6 mg/dL (0.1-1.0); CALCIUM 10.4 mg/dL (8.7-10.4); CARBON DIOXIDE 25 mEq/L (21-32); CHLORIDE 106 mEq/L (98-107); CREATININE 0.7 mg/dL (0.6-1.0); GLUCOSE 229 mg/dL (70-105); POTASSIUM 4.5 mEq/L (3.5-5.1); PROTEIN TOTAL 7.4 g/dL (6.0-8.3); SODIUM 139 mEq/L (136-145); UREA NITROGEN BLOOD 9 mg/dL (9-23)
[2023-10-23 08:00] VITALS: BP 132/66; PULSE 68; RESP 18; TEMP 97.2
[2023-10-23] MEDS: ASPIRIN 81MG EC TABLET PO SCH (09:03)
[2023-10-23] MEDS: INSULIN LISPRO 100 UNITS/ML SUBCUT SCH (09:04)
[2023-10-23 12:00] VITALS: BP 115/60; PULSE 72; RESP 18; TEMP 97.6
[2023-10-23] MEDS ORDERED: ATOR20TA PO (14:37)
[2023-10-23] MEDS ORDERED: ASPI-1406 PO (14:37)
[2023-10-23 16:00] VITALS: BP 116/63; PULSE 78; RESP 18; TEMP 98.2
[2023-10-23 17:33] VITALS: BP 116/62; PULSE 78; TEMP 98.2; O2SAT 100
[2023-10-23] MEDS ORDERED: ATORVASTATIN CALCIUM 20MG TABLET PO SCH (21:00)
== END 2023-10-23 18:12 | disposition home or self-care (01) | DRG 54 ==
LOC: ER 08:25 → 5WST 11:42 → EDBEDREQ 11:50 → 7WST 20:22
PROVIDERS: ADMIT Internal Medicine; ATTEND Internal Medicine
DX: G43.109 Migraine with aura, not intractable, without status migrainosus (principal); G45.9 Transient cerebral ischemic attack, unspecified; E11.9 Type 2 diabetes mellitus without complications; I10 Essential (primary) hypertension; Z79.4 Long term (current) use of insulin; Z79.82 Long term (current) use of aspirin; Z86.73 Personal history of transient ischemic attack (TIA), and cerebral infarction without residual deficits; Z90.49 Acquired absence of other specified parts of digestive tract; Z90.710 Acquired absence of both cervix and uterus; Z79.899 Other long term (current) drug therapy
CPT/HCPCS: 36415; 70496; 70498; 70551; 71045; 76705; 80053; 80061; 80305; 80320; 81003; 82962; 83036; 83880; 84484; 85025; 93005; 93970; 97161; 97166; 99285; J1815; J2405; J7030; Q9967; G0480

== ENCOUNTER 2024-07-03 16:30 | Emergency (ER) | payer MEDICAID, OTHER ==
[~2024-07-03] VITALS: Ht 160 cm; Wt 82.0 kg
[~2024-07-03 16:30] MED LIST changes: +AMLO5TAB88 PO; +AMOX1TAB15 PO; -AMOX1TAB16 MT; +ASPI-1406 PO; +ATOR20TA PO; -BENZ100C86 MT; -GLIP10TA10 PO; +GLIP10TA17 PO; -IBUP-2029 MT; +METF-1149 PO; -METF-873 PO; -METFORMIN; -METR-167 MT; -NAPR-681 PO; -TOPUD PO
[2024-07-03 16:52] VITALS: O2SAT 97
[2024-07-03] MEDS ORDERED: CLIN-194 MT (19:37)
[2024-07-03] MEDS ORDERED: MUPI1OIN4 TP (19:37)
[2024-07-03 20:00] VITALS: BP 124/82; PULSE 87; RESP 18; TEMP 36.83628; O2SAT 97
== END 2024-07-03 20:00 | disposition home or self-care (01) ==
LOC: ER 16:30
DX: L02.01 Cutaneous abscess of face (principal); I10 Essential (primary) hypertension; E11.9 Type 2 diabetes mellitus without complications; Z90.49 Acquired absence of other specified parts of digestive tract; Z90.710 Acquired absence of both cervix and uterus; Z79.84 Long term (current) use of oral hypoglycemic drugs; Z79.899 Other long term (current) drug therapy; Z79.82 Long term (current) use of aspirin
CPT/HCPCS: 99283

== ENCOUNTER 2024-07-23 20:31 | Inpatient (IN) | payer OTHER ==
[~2024-07-23] VITALS: Ht 152.4 cm; Wt 68.0 kg
[~2024-07-23 20:31] MED LIST changes: +CLIN-194 MT; +MUPI1OIN4 TP
[2024-07-23] MEDS: SODIUM CHLORIDE 0.9% (SEPSIS BOLUS) IV ONE (21:00)
[2024-07-23] MEDS: VANCOMYCIN 1G PREMIX 200 ML IV ONE (21:00)
[2024-07-23] MEDS: MORPHINE SULFATE 4 MG/ML INJ (FOR IV/IM USE) IV NR (21:19)
[2024-07-23] MEDS: ACETAMINOPHEN 1000MG/100ML 100 ML IV NR (21:30)
[2024-07-23 21:56] LABS: BASOPHILS % 0.2 % (0.0-2.0); EOSINOPHILS % 0.1 % (0.0-5.0); HEMATOCRIT. 36.7 % (36.0-48.0); HEMOGLOBIN. 12.6 g/dL (12.0-16.0); LYMPHOCYTES % 11.7 % (20.0-50.0); MEAN CORPUSCULAR HEMOGLOBIN 29.6 pg (28.0-32.0); MEAN CORPUSCULAR HGB CONC 34.4 g/dL (31.0-37.0); MEAN CORPUSCULAR VOLUME 86.1 fL (81.0-99.0); MEAN PLATELET VOLUME 7.8 fl (7.4-10.4); MONOCYTES % 5.4 % (2.0-8.0); NEUTROPHILS % 82.6 % (40.0-76.0); PLATELET 253 x1000/uL (130-400); RED BLOOD CELL COUNT 4.26 mill/uL (4.2-5.4); RED CELL DISTRIBUTION WIDTH 12.4 % (11.6-14.6); WHITE BLOOD COUNT 10.2 x1000/uL (4.5-11.0)
[2024-07-23 22:07] LABS: PROTHROMBIN TIME 10.7 sec (9.6-11.0)
[2024-07-23 22:08] LABS: CHLORIDE 102 mEq/L (98-107); SODIUM 135 mEq/L (136-145)
[2024-07-23 22:09] LABS: CALCIUM 10.5 mg/dL (8.7-10.4); CARBON DIOXIDE 23 mEq/L (21-32)
[2024-07-23 22:14] LABS: CREATININE 0.8 mg/dL (0.6-1.0); GLUCOSE 399 mg/dL (70-105); UREA NITROGEN BLOOD 9 mg/dL (9-23)
[2024-07-24] MEDS: IOHEXOL-300 100 ML BOTTLE ONE (00:14)
[2024-07-24] MEDS ORDERED: ONDANSETRON HCL 4MG/2ML INJ IV PRN (01:30)
[2024-07-24] MEDS ORDERED: MAGNESIUM/ALUMINUM HYDROXIDE/SIMETHICONE 30ML UDC PO PRN (01:30)
[2024-07-24] MEDS ORDERED: IPRATROPIUM/ALBUTEROL 0.5-3(2.5)MG/3ML NEB HHN PRN (01:30)
[2024-07-24] MEDS ORDERED: DEXTROSE 50% WATER 50ML SYRINGE IV PRN (01:30)
[2024-07-24] MEDS ORDERED: DOCUSATE SODIUM 100MG CAPSULE PO PRN (01:30)
[2024-07-24] MEDS ORDERED: GUAIFENESIN 200MG/10ML SUGAR FREE UDC PO PRN (01:30)
[2024-07-24] MEDS ORDERED: ACETAMINOPHEN 325MG TABLET PO PRN (01:30)
[2024-07-24] MEDS ORDERED: CLONIDINE 0.1MG TABLET PO PRN (01:30)
[2024-07-24] MEDS: PIPERACILLIN/TAZO 3.375G/100ML 100 ML IV SCH (06:00)
[2024-07-24] MEDS: INSULIN LISPRO 100 UNITS/ML SUBCUT SCH (08:20)
[2024-07-24 08:38] LABS: CHLORIDE 109 mEq/L (98-107); POTASSIUM 3.8 mEq/L (3.5-5.1); SODIUM 141 mEq/L (136-145)
[2024-07-24 08:39] LABS: CARBON DIOXIDE 28 mEq/L (21-32)
[2024-07-24 08:40] LABS: CALCIUM 9.6 mg/dL (8.7-10.4)
[2024-07-24 08:44] LABS: CREATININE 0.6 mg/dL (0.6-1.0); GLUCOSE 184 mg/dL (70-105); UREA NITROGEN BLOOD 8 mg/dL (9-23)
[2024-07-24 08:52] LABS: BASOPHILS % 0.2 % (0.0-2.0); EOSINOPHILS % 0.7 % (0.0-5.0); HEMATOCRIT. 34.5 % (36.0-48.0); HEMOGLOBIN. 11.6 g/dL (12.0-16.0); LYMPHOCYTES % 24.1 % (20.0-50.0); MEAN CORPUSCULAR HGB CONC 33.5 g/dL (31.0-37.0); MEAN CORPUSCULAR VOLUME 86.7 fL (81.0-99.0); MEAN PLATELET VOLUME 7.7 fl (7.4-10.4); MONOCYTES % 7.2 % (2.0-8.0); NEUTROPHILS % 67.8 % (40.0-76.0); PLATELET 255 x1000/uL (130-400); RED BLOOD CELL COUNT 3.98 mill/uL (4.2-5.4); RED CELL DISTRIBUTION WIDTH 12.7 % (11.6-14.6); WHITE BLOOD COUNT 10.1 x1000/uL (4.5-11.0)
[2024-07-24 08:57] LABS: BETA HYDROXYBUTYRATE < 0.1 mMol/L (0.0-0.3)
[2024-07-24] MEDS: VANCOMYCIN 750MG/150ML (BAXTER) IV SCH (09:00)
[2024-07-24] MEDS: BLOOD SUGAR DIAGNOSTIC STRIP TEST SCH (09:00)
[2024-07-24] MEDS: ENOXAPARIN 40MG/0.4ML SYR SUBCUT SCH (09:00)
[2024-07-24 13:23] LABS: CLARITY URINE CLEAR (CLEAR); COLOR URINE YELLOW (YELLOW); GLUCOSE URINE 3+ (NEGATIVE); KETONES URINE TRACE (NEGATIVE); LEUKOCYTE ESTERASE URINE NEGATIVE (NEGATIVE); NITRITE URINE NEGATIVE (NEGATIVE); OCCULT BLOOD URINE NEGATIVE (NEGATIVE); PH URINE 6.5 (4.5-8.0); PROTEIN URINE NEGATIVE (NEGATIVE); SPECIFIC GRAVITY URINE 1.026 (1.005-1.030)
[2024-07-24 13:38] LABS: BACTERIA URINE 1+; RBC URINE 0-2 /hpf (0-2); SQUAMOUS EPITHELIAL CELL URINE 1+ /lpf (RARE/1+); WBC URINE 0-2 /hpf (0-2); YEAST URINE NONE SEEN
[2024-07-24 15:57] VITALS: BP 112/81; PULSE 95; RESP 18; TEMP 35.9176
[2024-07-24 16:00] VITALS: BP 112/81; PULSE 90; RESP 18; TEMP 36.44736; O2SAT 99
[2024-07-24 20:00] VITALS: BP 133/70; PULSE 95; RESP 20; TEMP 38.28084; O2SAT 99
[2024-07-24] MEDS: FAMOTIDINE 20MG TABLET PO SCH (21:55)
[2024-07-24] MEDS: ACETAMINOPHEN 325MG TABLET PO PRN (21:55)
[2024-07-24] MEDS ORDERED: INSULIN GLARGINE 100 UNITS/ML SUBCUT SCH (22:00)
[2024-07-25] VITALS: BP 111/62; PULSE 80; RESP 20; TEMP 37.39188; O2SAT 98
[2024-07-25 04:00] VITALS: BP 116/70; PULSE 80; RESP 20; TEMP 37.2252; O2SAT 98
[2024-07-25] MEDS: PIPERACILLIN/TAZO 3.375G/100ML 100 ML IV SCH (06:32)
[2024-07-25 07:07] LABS: CHLORIDE 106 mEq/L (98-107); POTASSIUM 3.5 mEq/L (3.5-5.1); SODIUM 141 mEq/L (136-145)
[2024-07-25 07:08] LABS: CARBON DIOXIDE 27 mEq/L (21-32)
[2024-07-25 07:13] LABS: CREATININE 0.6 mg/dL (0.6-1.0); GLUCOSE 145 mg/dL (70-105); UREA NITROGEN BLOOD 6 mg/dL (9-23)
[2024-07-25 07:30] LABS: HEMOGLOBIN 11.5 g/dL (12.0-16.0); MEAN CORPUSCULAR HEMOGLOBIN 29.3 pg (28.0-32.0); MEAN CORPUSCULAR HGB CONC 33.9 g/dL (31.0-37.0); MEAN CORPUSCULAR VOLUME 86.5 fL (81.0-99.0); PLATELET 315 x1000/uL (130-400); RED BLOOD CELL COUNT 3.93 mill/uL (4.2-5.4); RED CELL DISTRIBUTION WIDTH 12.2 % (11.6-14.6); WHITE BLOOD COUNT 7.8 x1000/uL (4.5-11.0)
[2024-07-25 08:00] VITALS: BP 119/67; PULSE 86; RESP 18; TEMP 36.44736; O2SAT 97
[2024-07-25 12:00] VITALS: BP 121/70; PULSE 88; RESP 15; TEMP 36.6696; O2SAT 98
[2024-07-25] MEDS: SODIUM HYPOCHLORITE 0.125% 473ML SOLUTION TOP SCH (13:21)
[2024-07-25 20:00] VITALS: BP 146/80; PULSE 81; RESP 18; TEMP 36.16956; O2SAT 98
[2024-07-25] MEDS: VANCOMYCIN 1G PREMIX 200 ML IV SCH (20:31)
[2024-07-26] VITALS: BP 121/62; PULSE 97; RESP 19; TEMP 37.00296; O2SAT 97
[2024-07-26 04:00] VITALS: BP 103/54; PULSE 89; RESP 19; TEMP 36.28068; O2SAT 100
[2024-07-26 08:00] VITALS: BP 108/66; PULSE 86; RESP 18; TEMP 36.61404; O2SAT 98
[2024-07-26] MEDS ORDERED: CIPR500S3 PO (10:47)
[2024-07-26] MEDS ORDERED: AMOX600S39 PO (10:47)
[2024-07-26 12:00] VITALS: BP 110/60; PULSE 84; RESP 18; TEMP 36.6696; O2SAT 98
[2024-07-26 15:50] VITALS: BP 117/69; PULSE 78; TEMP 98.2; O2SAT 97
[2024-07-26 16:00] VITALS: BP 117/69; PULSE 78; RESP 18; TEMP 36.78072; O2SAT 97
== END 2024-07-26 17:30 | disposition home or self-care (01) | DRG 720 ==
LOC: ER 20:31 → EDBEDREQTM 23:52 → EDBEDREQ 23:52 → 7WST 07-24 17:49
PROVIDERS: ADMIT Internal Medicine; ATTEND Internal Medicine
DX: A41.9 Sepsis, unspecified organism (principal); E11.65 Type 2 diabetes mellitus with hyperglycemia; L03.317 Cellulitis of buttock; I10 Essential (primary) hypertension; E78.00 Pure hypercholesterolemia, unspecified; S31.819A Unspecified open wound of right buttock, initial encounter; X58.XXXA Exposure to other specified factors, initial encounter; Y93.89 Activity, other specified; Y92.89 Other specified places as the place of occurrence of the external cause; Y99.8 Other external cause status; Z79.4 Long term (current) use of insulin; Z79.82 Long term (current) use of aspirin; Z79.84 Long term (current) use of oral hypoglycemic drugs; Z79.899 Other long term (current) drug therapy; Z90.710 Acquired absence of both cervix and uterus
CPT/HCPCS: 36415; 72193; 80048; 80061; 80202; 81003; 82010; 82310; 82962; 83036; 83605; 84145; 85025; 85027; 93005; 99291; A4606; A4663; J1650; J1815; J2543; J3370; J7030; Q9967; J0131

== ENCOUNTER 2024-10-07 09:59 | Emergency (ER) | payer MEDICAID, OTHER ==
[~2024-10-07] VITALS: Ht 152.4 cm; Wt 65.3 kg
[~2024-10-07 09:59] MED LIST changes: -AMOX1TAB15 PO; +AMOX600S39 PO; +CIPR500S3 PO; -CLIN-194 MT
[2024-10-07 10:16] VITALS: BP 122/80; PULSE 84; RESP 18; TEMP 37.1; O2SAT 95
[2024-10-07] MEDS: HYDROCODONE/ACETAMINOPHEN 5/325MG TABLET PO STA (13:47)
[2024-10-07] MEDS ORDERED: MUPI1OIN4 TP (17:00)
[2024-10-07] MEDS ORDERED: IBUP-1523 MT (17:00)
[2024-10-07] MEDS ORDERED: TOPUD MT (17:00)
[2024-10-07] MEDS ORDERED: AMOX600S39 PO (17:00)
== END 2024-10-07 17:11 | disposition home or self-care (01) ==
LOC: ER 09:59
DX: J34.0 Abscess, furuncle and carbuncle of nose (principal); E11.9 Type 2 diabetes mellitus without complications; I10 Essential (primary) hypertension; Z79.899 Other long term (current) drug therapy; Z90.710 Acquired absence of both cervix and uterus
CPT/HCPCS: 70486; 99284

== ENCOUNTER 2024-12-13 07:55 | Emergency (ER) | payer MEDICAID, OTHER ==
[~2024-12-13] VITALS: Ht 152.4 cm; Wt 68.0 kg
[~2024-12-13 07:55] MED LIST changes: +IBUP-1523 MT; +TOPUD MT
[2024-12-13 08:02] VITALS: TEMP 36.9; O2SAT 98
[2024-12-13 08:27] LABS: BASOPHILS % 0.5 % (0.0-2.0); EOSINOPHILS % 1.2 % (0.0-5.0); HEMATOCRIT. 40.3 % (36.0-48.0); HEMOGLOBIN. 13.2 g/dL (12.0-16.0); LYMPHOCYTES % 42.2 % (20.0-50.0); MEAN CORPUSCULAR HEMOGLOBIN 28.2 pg (28.0-32.0); MEAN CORPUSCULAR HGB CONC 32.9 g/dL (31.0-37.0); MEAN CORPUSCULAR VOLUME 85.6 fL (81.0-99.0); MONOCYTES % 5.4 % (2.0-8.0); NEUTROPHILS % 50.7 % (40.0-76.0); PLATELET 270 x1000/uL (130-400); RED CELL DISTRIBUTION WIDTH 13.3 % (11.6-14.6); WHITE BLOOD COUNT 6.2 x1000/uL (4.5-11.0)
[2024-12-13 08:42] LABS: CARBON DIOXIDE 25 mEq/L (21-32); CHLORIDE 113 mEq/L (98-107); POTASSIUM 4.1 mEq/L (3.5-5.1); SODIUM 143 mEq/L (136-145)
[2024-12-13 08:43] LABS: CALCIUM 10.2 mg/dL (8.7-10.4)
[2024-12-13 08:48] LABS: CREATININE 0.6 mg/dL (0.6-1.0); GLUCOSE 149 mg/dL (70-105); UREA NITROGEN BLOOD 13 mg/dL (9-23)
[2024-12-13 09:16] LABS: TROPONIN I HIGH SENSITIVITY < 4 ng/L (3.0-34)
[2024-12-13] MEDS: KETOROLAC 15MG/ML VIAL IV ONE (10:03)
[2024-12-13 11:05] LABS: TROPONIN I HIGH SENSITIVITY < 4 ng/L (3.0-34)
[2024-12-13 13:23] VITALS: BP 130/65; PULSE 72; RESP 18; O2SAT 98
== END 2024-12-13 13:26 | disposition home or self-care (01) ==
LOC: ER 08:26
DX: R07.89 Other chest pain (principal); M54.9 Dorsalgia, unspecified; E11.9 Type 2 diabetes mellitus without complications; I10 Essential (primary) hypertension; M19.90 Unspecified osteoarthritis, unspecified site; Z79.82 Long term (current) use of aspirin; Z79.84 Long term (current) use of oral hypoglycemic drugs; Z79.899 Other long term (current) drug therapy; Z90.710 Acquired absence of both cervix and uterus
CPT/HCPCS: 99285; 96374; 71045; 80048; 85025; 84484; 36415; 93005; J1885

== ENCOUNTER 2025-03-01 12:26 | Emergency (ER) | payer MEDICARE, OTHER ==
[~2025-03-01] VITALS: Ht 152.4 cm; Wt 68.0 kg
[2025-03-01 12:40] VITALS: O2SAT 98
[2025-03-01] MEDS: SODIUM CHLORIDE 0.9% 1,000 ML IV ONE (13:15)
[2025-03-01 13:22] LABS: BASOPHILS % 0.3 % (0.0-2.0); EOSINOPHILS % 0.6 % (0.0-5.0); HEMATOCRIT. 40.5 % (36.0-48.0); HEMOGLOBIN. 13.4 g/dL (12.0-16.0); LYMPHOCYTES % 34.9 % (20.0-50.0); MEAN PLATELET VOLUME 7.1 fl (7.4-10.4); MONOCYTES % 4.7 % (2.0-8.0); NEUTROPHILS % 59.5 % (40.0-76.0); PLATELET 264 x1000/uL (130-400); RED BLOOD CELL COUNT 4.66 mill/uL (4.2-5.4); RED CELL DISTRIBUTION WIDTH 13.0 % (11.6-14.6)
[2025-03-01 13:24] LABS: CLARITY URINE CLOUDY (CLEAR); COLOR URINE YELLOW (YELLOW); GLUCOSE URINE 2+ (NEGATIVE); KETONES URINE TRACE (NEGATIVE); LEUKOCYTE ESTERASE URINE TRACE (NEGATIVE); NITRITE URINE NEGATIVE (NEGATIVE); OCCULT BLOOD URINE NEGATIVE (NEGATIVE); PH URINE 5.0 (4.5-8.0); PROTEIN URINE TRACE (NEGATIVE); SPECIFIC GRAVITY URINE 1.026 (1.005-1.030); UROBILINOGEN URINE 0.2 E.U./dL (0.2-1.0)
[2025-03-01 13:33] LABS: INR 0.9
[2025-03-01 13:40] LABS: CREATININE 0.7 mg/dL (0.6-1.0)
[2025-03-01 13:41] LABS: UREA NITROGEN BLOOD 12 mg/dL (9-23)
[2025-03-01 13:42] LABS: ASPARTATE AMINOTRANSFERASE 18 IU/L (<34)
[2025-03-01 13:43] LABS: BILIRUBIN DIRECT 0.1 mg/dL (<=3.0); BILIRUBIN TOTAL 0.4 mg/dL (0.1-1.0); PROTEIN TOTAL 7.5 g/dL (6.0-8.3)
[2025-03-01 13:49] LABS: SQUAMOUS EPITHELIAL CELL URINE 2+ /lpf (RARE/1+)
[2025-03-01 13:50] LABS: BACTERIA URINE 2+; RBC URINE NONE SEEN /hpf (0-2)
[2025-03-01] MEDS: MORPHINE SULFATE 4 MG/ML INJ (FOR IV/IM USE) IV ONE (13:56)
[2025-03-01] MEDS: ONDANSETRON HCL 4MG/2ML INJ IV ONE (13:56)
[2025-03-01] MEDS: FAMOTIDINE 20MG/2ML VIAL IV ONE (13:57)
[2025-03-01 15:51] VITALS: BP 123/65; PULSE 68; RESP 16; TEMP 36.7; O2SAT 100
== END 2025-03-01 16:14 | disposition home or self-care (01) ==
LOC: ER 12:26
DX: R19.7 Diarrhea, unspecified (principal); R11.2 Nausea with vomiting, unspecified; I10 Essential (primary) hypertension; T50.905A Adverse effect of unspecified drugs, medicaments and biological substances, initial encounter; E11.65 Type 2 diabetes mellitus with hyperglycemia; M19.90 Unspecified osteoarthritis, unspecified site; Z79.4 Long term (current) use of insulin; Z79.82 Long term (current) use of aspirin; Z79.84 Long term (current) use of oral hypoglycemic drugs; Z79.85 Long-term (current) use of injectable non-insulin antidiabetic drugs; Z79.899 Other long term (current) drug therapy; Z90.49 Acquired absence of other specified parts of digestive tract; Z90.710 Acquired absence of both cervix and uterus; Y92.89 Other specified places as the place of occurrence of the external cause
CPT/HCPCS: 99284; 96374; 96375; 80076; 80048; 81003; 83690; 83735; 85025; 85610; 36415; J1308; J2405; J2270; J7030